=== PATIENT | male | born 1970 | race Hispanic/Latino ===

== ENCOUNTER → 2020-06-20 | Outpatient (CLI) | payer OTHER ==
[~2020-06-20] MED LIST: IOPAMIDOL 370 MG/ML 200 ML INFUS..BTL INJ ONE; NITROGLYCERIN 0.4 MG SUBL ONE; SODIUM CHLORIDE 0.9% 100 ML ONE
[2020-06-20 08:37] LABS: BLOOD UREA NITROGEN 18 mg/dL (7-26); BUN/CREATININE RATIO 20 (6-25); CREATININE, SERUM 0.89 mg/dL (0.72-1.25); EST GLOMERULAR FILTRATION RATE > 60 ML/MIN (60-)
--- NOTE | 2020-06-20 15:03 | Diagnostic Imaging Report ---
EXAM: CALCIUM SCORE AND CORONARY CTA INDICATION: Screening for cardiac disease COMPARISON: CTA coronary with calcium scoring from 05/21/2016 TECHNIQUE: Multi-detector CT technology was employed ( 64 MDCT [employer]). Minimal slice thickness was performed following the intravenous administration of contrast material. The patient was premedicated with 0.4 mg sublingual nitroglycerin for coronary dilation. There was no need to administer beta ciaran due to low heart rate during the exam. IV CONTRAST: 100mL of Isovue-370 ORAL CONTRAST: None COMPLICATIONS: None RADIATION DOSE: Total DLP: 1621 mGy*cm Estimated effective dose: (DLP x 0.015 x size factor) mSv CTDIvol has been reviewed. It is below the limits set by the Radiation Protocol Committee (RPC). For optimization of anatomic evaluation, multiplanar reconstruction, maximum intensity projections, and advanced 3-D off-line postprocessing were performed on a dedicated stand-alone workstation under the direct supervision of the interpreting physician. QUALITY: Good FINDINGS: CALCIUM SCORE: The observed Agatston Calcium Score of 22.6, previously 0. The Agatston score for each vessel is as follows: LM: 0 LAD: 18.3 LCx: 4.37 RCA: 0 DISTRIBUTION OF THE CALCIFIED PLAQUES: Mild calcified plaque in the LAD and LCx. CORONARY ANATOMY: There is normal origin of the coronary arteries. Left Main Coronary Artery: The left main is normal sized vessel that bifurcates into the LAD and circumflex. There is no evidence of atherosclerotic changes or stenotic disease. Left Anterior Descending Coronary Artery: The LAD is a normal size vessel that wraps around the apex. It gives rise to 2 acute diagonal branches. Mild mixed (calcified and noncalcified) plaque in the proximal LAD, progressed since prior exam. Otherwise, no evidence of atherosclerotic changes or stenotic disease. Left Circumflex Coronary Artery: The LCX is a normal size vessel, which is non-dominant. It gives rise to 2 obtuse marginal branches. Minimal calcified plaque in the LCx, new since prior exam. Otherwise, no evidence of atherosclerotic changes or stenotic disease. Right Coronary Artery: The RCA is a normal size vessel, which is dominant. It gives rise to a conus branch, AV daksha branch, and 2 acute marginal branches. In its distal segment it bifurcates into the PDA and PV branch. There is no evidence of atherosclerotic changes or stenotic disease. CARDIAC MORPHOLOGY AND FUNCTION: The right and left atria and ventricles are morphologically normal. There is normal resting global left ventricular systolic function. LVEF: 63.3%, LV end diastolic volume: 155.2 cc LV end systolic volume: 57 cc LV stroke volume: 98.2 cc LIMITED CHEST: Limited views of the visualized chest show no abnormality within chest wall and mediastinum. No mediastinal lymphadenopathy. Left lower lobe mild linear scarring. The visualized portions of the ascending and descending thoracic aorta are of normal size. LIMITED ABDOMEN: Limited images of the upper abdomen reveal no abnormalities of the visualized organs. BONES: No acute osseous abnormalities. IMPRESSION: 1. Total Agatston Calcium Score: 22.6 (previously 0), representing mild calcified plaques in the coronary arteries. 2. Normal coronary anatomy. 3. Mild mixed calcified plaque in the proximal LAD, resulting in mild stenosis (25-49%) and minimal calcified plaque in the LCx (1-24%), progressed since prior exam. Otherwise, no evidence of atherosclerotic changes or stenotic disease. CAD-JASKARAN: 2 Signed by: Dr. Sabiha Estrella M.D. on 06/20/2020 3:00 PM
== END ==
LOC: CT 07:25
PROVIDERS: ATTEND Family Medicine
DX: Z00.00 Encounter for general adult medical examination without abnormal findings (principal); Z13.0 Encounter for screening for diseases of the blood and blood-forming organs and certain disorders involving the immune mechanism
CPT/HCPCS: 36415; 75574; 82565; 84520; J7050; Q9967